=== PATIENT | female | born 1965 | race Caucasian/White ===

== ENCOUNTER 2016-08-29 12:45 | Outpatient (CLI) | payer BC | END 2016-08-29 12:46 | disposition home or self-care (01) | DX: R94.4 Abnormal results of kidney function studies (principal) ==

== ENCOUNTER 2016-09-04 14:03 | Outpatient (CLI) | payer BC | END 2016-09-04 14:04 | disposition home or self-care (01) | DX: Z12.31 Encounter for screening mammogram for malignant neoplasm of breast (principal) ==

== ENCOUNTER 2016-10-03 14:38 | Outpatient (CLI) | payer BC | END 2016-10-03 14:39 | disposition home or self-care (01) | DX: R94.4 Abnormal results of kidney function studies (principal) ==

== ENCOUNTER 2016-10-03 14:51 | Outpatient (CLI) | payer BC | END 2016-10-03 14:52 | disposition home or self-care (01) | DX: R94.4 Abnormal results of kidney function studies (principal) ==

== ENCOUNTER 2016-10-28 07:27 | Day surgery (SDC) | payer BC ==
[2016-10-28] MEDS ORDERED: LACTATED RINGERS 1,000 ML IV ONE ×2 (08:04)
[2016-10-28] MEDS ORDERED: LIDOCAINE 1% 50 ML MDV ONE (08:13)
[2016-10-28] MEDS ORDERED: MIDAZOLAM 2 MG/2 ML VIAL IVP ONE (10:20)
[2016-10-28] MEDS ORDERED: fentaNYL 250 MCG/5 ML VIAL IVP ONE (10:20)
== END 2016-10-28 07:28 | disposition home or self-care (01) ==
PROC: 0DJD8ZZ Inspection of Lower Intestinal Tract, Via Natural or Artificial Opening Endoscopic (ICD-10-PCS; principal; 2016-10-28 09:00)
DX: Z12.11 Encounter for screening for malignant neoplasm of colon (principal); K64.8 Other hemorrhoids; F41.9 Anxiety disorder, unspecified; Z90.49 Acquired absence of other specified parts of digestive tract; Z90.710 Acquired absence of both cervix and uterus; Z90.79 Acquired absence of other genital organ(s); Z90.722 Acquired absence of ovaries, bilateral; Z80.0 Family history of malignant neoplasm of digestive organs; Z80.9 Family history of malignant neoplasm, unspecified
CPT/HCPCS: 45378; J3010; J7120

== ENCOUNTER 2018-07-03 08:31 | Outpatient (CLI) | payer MEDICAID ==
[2018-07-03 10:22] LABS: BASOPHILS % (AUTO) 0.7 %; EOSINOPHILS # (AUTO) 0.4 10^3/uL (0.0-0.7); EOSINOPHILS % (AUTO) 5.9 %; HGB - HEMOGLOBIN 14.9 g/dL (12.0-16.0); LYMPHOCYTES # (AUTO) 2.2 10^3/uL (1.5-3.5); LYMPHOCYTES % (AUTO) 36.4 %; MEAN CORPUSCULAR HEMOGLOBIN 30.9 pg (27.0-31.0); MEAN CORPUSCULAR HGB CONC 34.1 g/dL (32.0-36.0); MEAN CORPUSCULAR VOLUME 90.4 fL (81.0-99.0); MEAN PLATELET VOLUME 8.8 fL (7.9-10.8); MONOCYTES # (AUTO) 0.4 10^3/uL (0.0-1.0); MONOCYTES % (AUTO) 6.6 %; NEUTROPHILS % (AUTO) 50.4 %; PLT - PLATELET COUNT 243 10^3/uL (130-450); RED BLOOD COUNT 4.82 10^6/uL (4.20-5.40); RED CELL DISTRIBUTION WIDTH 13.3 % (12.0-15.0)
[2018-07-03 10:33] LABS: ALBUMIN 4.1 g/dL (3.2-5.5); ALBUMIN/GLOBULIN RATIO 1.4 (1.0-2.2); ALKALINE PHOSPHATASE 71 IU/L (42-121); ALT ALANINE AMINOTRANSFERASE 33 IU/L (10-60); AST ASPARTATE AMINOTRANSFERASE 27 IU/L (10-42); BILIRUBIN,TOTAL 0.7 mg/dL (0.2-1.0); BUN - BLOOD UREA NITROGEN 24 mg/dL (6-20); CALCIUM 9.2 mg/dL (8.5-10.3); CARBON DIOXIDE - CO2 27 mmol/L (21-32); CHLORIDE 101 mmol/L (101-111); CHOL/HDL RATIO 3.3 (<4.4); CHOLESTEROL 225 mg/dL; CREATININE 0.8 mg/dL (0.4-1.0); GFR - MDRD 75 (>89); GLUCOSE 88 mg/dL (70-100); HDL CHOLESTEROL 68 mg/dL; LDL CHOLESTEROL,CALCULATED 144 mg/dL; LDL/HDL RATIO 2.1 (<4.4); SODIUM 136 mmol/L (135-145); TOTAL PROTEIN 7.1 g/dL (6.7-8.2); VLDL CHOLESTEROL 13 mg/dL
== END 2018-07-03 08:32 | disposition home or self-care (01) ==
LOC: LAB.F 08:31
PROVIDERS: ATTEND Nurse Practitioner Family
DX: F41.8 Other specified anxiety disorders (principal); Z13.6 Encounter for screening for cardiovascular disorders
CPT/HCPCS: 36415; 80053; 80061; 83721; 84443; 85025

== ENCOUNTER 2019-07-09 11:48 | Outpatient (CLI) | payer BC, MEDICAID ==
[2019-07-09 17:16] LABS: BASOPHILS # (AUTO) 0.1 10^3/uL (0.0-0.1); BASOPHILS % (AUTO) 0.7 %; EOSINOPHILS # (AUTO) 0.3 10^3/uL (0.0-0.7); EOSINOPHILS % (AUTO) 3.5 %; HGB - HEMOGLOBIN 14.1 g/dL (12.0-16.0); LYMPHOCYTES # (AUTO) 1.5 10^3/uL (1.5-3.5); LYMPHOCYTES % (AUTO) 19.4 %; MEAN CORPUSCULAR HEMOGLOBIN 29.7 pg (27.0-31.0); MEAN CORPUSCULAR HGB CONC 31.9 g/dL (32.0-36.0); MEAN CORPUSCULAR VOLUME 93.1 fL (81.0-99.0); MONOCYTES # (AUTO) 0.4 10^3/uL (0.0-1.0); MONOCYTES % (AUTO) 5.1 %; NEUTROPHILS # (AUTO) 5.5 10^3/uL (1.5-6.6); PLT - PLATELET COUNT 282 10^3/uL (130-450); RED BLOOD COUNT 4.75 10^6/uL (4.20-5.40); RED CELL DISTRIBUTION WIDTH 14.1 % (12.0-15.0); WHITE BLOOD COUNT 7.7 x10^3/uL (4.8-10.8)
[2019-07-09 17:54] LABS: RHEUMATOID FACTOR NEGATIVE (Negative)
[2019-07-13 16:14] LABS: ANA SCREEN NEGATIVE (NEGATIVE)
== END 2019-07-09 11:49 | disposition home or self-care (01) ==
LOC: LAB.S 11:48
PROVIDERS: ATTEND Family Medicine
DX: R53.83 Other fatigue (principal); M79.10 Myalgia, unspecified site
CPT/HCPCS: 36415; 84443; 85025; 85651; 86038; 86140; 86430

== ENCOUNTER 2020-04-03 19:57 | Outpatient (CLI) | payer MEDICAID | END 2020-04-03 19:58 | disposition critical access hospital (66) | LOC: EMS 19:57 | PROVIDERS: ATTEND Surgery | DX: M54.5 Low back pain (principal) | CPT/HCPCS: A0425; A0429; A0999 ==

== ENCOUNTER 2020-07-12 08:00 | Outpatient (CLI) | payer MEDICAID ==
[2020-07-12 21:01] LABS: BILIRUBIN,URINE NEGATIVE (NEGATIVE); GLUCOSE, URINE (UA) NEGATIVE (NEGATIVE); KETONES,URINE (UA) NEGATIVE (NEGATIVE); LEUKOCYTE ESTERASE, URINE SMALL (NEGATIVE); NITRITE,URINE NEGATIVE (NEGATIVE); OCCULT BLOOD,URINE MODERATE (NEGATIVE); PH,URINE 6.5 PH (5.0-7.5); PROTEIN,URINE NEGATIVE (NEGATIVE); UROBILINOGEN,URINE 0.2 (NORMAL) E.U./dL (NORMAL)
[2020-07-12 21:18] LABS: CLARITY,URINE HAZY (CLEAR)
[2020-07-12 21:19] LABS: BACTERIA,URINE Moderate /HPF (None Seen); SQUAMOUS EPITHELIAL CELL,UR RARE Squamous (<= Few)
== END 2020-07-12 23:59 | disposition home or self-care (01) ==
LOC: LAB.R 08:00
PROVIDERS: ATTEND Emergency Medicine
DX: R30.0 Dysuria (principal); R39.15 Urgency of urination
CPT/HCPCS: 81001; 87086

== ENCOUNTER 2020-10-25 07:00 | Outpatient (CLI) | payer MEDICAID ==
--- NOTE | 2020-10-25 16:41 | XRAY Report ---
PROCEDURE: Ribs w/PA Chest LT INDICATIONS: LEFT SIDED RIB PAIN TECHNIQUE: 3 views of the left ribs were acquired, along with a single view chest. COMPARISON: None. FINDINGS: Surgical changes and devices: None. Anterior left seventh rib fracture seen, minimally displaced. Lungs and pleura: No pleural effusions or pneumothorax. Lungs appear clear. Mediastinum: Mediastinal contours appear normal. Heart size is normal. IMPRESSION: Anterior left seventh rib fracture. Reviewed by: Paul Montiel MD on 10/25/2020 4:39 PM PDT Approved by: Paul Montiel MD on 10/25/2020 4:39 PM PDT Station ID: [id number]
== END 2020-10-25 23:59 | disposition home or self-care (01) ==
LOC: DI.S 07:00
PROVIDERS: ATTEND Physician Assistant
DX: S22.32XA Fracture of one rib, left side, initial encounter for closed fracture (principal)

== ENCOUNTER 2021-02-20 13:50 | Outpatient (CLI) | payer MEDICAID ==
--- NOTE | 2021-02-21 08:03 | Mammography Report ---
BILATERAL DIGITAL SCREENING MAMMOGRAM 3D/2D: 02/20/2021 CLINICAL: Routine screening. Comparison is made to exams dated: 09/04/2016 mammogram, 11/01/2013 mammogram, 11/16/2008 mammogram, and 04/13/2007 mammogram - [facility]. There are scattered fibroglandular elements in both breasts. There is a benign calcification in the left breast. There also are benign calcifications in the righ t breast. Additionally, there are benign post operative findings in both breasts. No significant masses, calcifications, or other findings are seen in either breast. There has been no significant interval change. IMPRESSION: BENIGN There is no mammographic evidence of malignancy. A 1 year screening mammogram is recommended. This exam was interpreted at Station ID: [id number]. NOTE: For mammograms, a report in lay terms will be sent to the patient. Approximately 15% of breast malignancies will not be visualized mammographically. In the management of a palpable breast mass, a negative mammogram must not discourage biopsy of a clinically suspicious lesion. Electronically Signed By: Abel Monique M.D. [facility] [place]:02/20/2021 15:35:41 ACR BI-RADS Category 2: Benign Finding(s) 3342F PARENCHYMAL PATTERN: (A) - The breast(s) demonstrate(s) scattered fibroglandular densities. BI-RADS CATEGORY: (2) - 2 RECOMMENDATION: (ANNUAL) - Recommend routine annual screening mammography. [id number] 1 year screening LATERALITY: (B)
== END 2021-02-20 13:51 | disposition home or self-care (01) ==
LOC: DI 13:50
PROVIDERS: ATTEND Registered Nurse
DX: Z12.31 Encounter for screening mammogram for malignant neoplasm of breast (principal)

== ENCOUNTER 2021-02-20 13:52 | Outpatient (CLI) | payer MEDICAID ==
--- NOTE | 2021-02-20 17:04 | DEXA Report ---
PROCEDURE: Dexa Spine and/or Hip INDICATIONS: POST MENOPAUSAL TECHNIQUE: Dual energy x-ray absorptiometry (DXA) was performed on a [employer] System. Regions measur ed are the AP Spine, femoral neck, and if needed forearm. COMPARISON: None. FINDINGS: Lumbar Spine: Bone Mineral Density 0.825 g/cm/cm,T score -3.0, osteoporosis Left Hip: Bone Mineral Density 0.913 g/cm/cm,T score -0.7, normal Left Femoral Neck: Bone Mineral Density 0.895 g/cm/cm, T score -1.0, normal (T score greater or equal to -1.0: NORMAL) (T score from -1.1 to -2.4: OSTEOPENIA) (T score less than or equal to -2.5 to: OSTEOPOROSIS) Impression: Osteoporosis. Patients with diagnosis of osteoporosis or osteopenia should have regular bone mineral density assess ment. For those eligible for Medicare, routine testing is allowed once every 2 years. Testing frequ ency can be increased for patients who have rapidly progressing disease or for those who are receivin g medical therapy to restore bone mass. Reviewed by: Ranjana Murillo MD, PhD on 02/20/2021 5:03 PM PDT Approved by: Ranjana Murillo MD, PhD on 02/20/2021 5:03 PM PDT Station ID: [id number]
== END 2021-02-20 13:53 | disposition home or self-care (01) ==
LOC: DI 13:52
PROVIDERS: ATTEND Registered Nurse
DX: Z78.0 Asymptomatic menopausal state (principal); M81.0 Age-related osteoporosis without current pathological fracture

== ENCOUNTER 2021-07-04 08:00 | Outpatient (CLI) | payer MEDICAID | END 2021-07-04 23:59 | LOC: LAB.S 08:00 | PROVIDERS: ATTEND Physician Assistant Medical | DX: R50.9 Fever, unspecified (principal); J34.89 Other specified disorders of nose and nasal sinuses; J02.9 Acute pharyngitis, unspecified; Z20.822 Contact with and (suspected) exposure to COVID-19 | CPT/HCPCS: 87070 ==

== ENCOUNTER 2023-03-13 09:02 | Outpatient (CLI) | payer MEDICAID ==
[2023-03-13 14:21] LABS: BASOPHILS # (AUTO) 0.1 10^3/uL (0.0-0.1); BASOPHILS % (AUTO) 0.8 %; EOSINOPHILS # (AUTO) 0.2 10^3/uL (0.0-0.7); EOSINOPHILS % (AUTO) 3.3 %; HCT - HEMATOCRIT 44.6 % (37.0-47.0); HGB - HEMOGLOBIN 14.1 g/dL (12.0-16.0); LYMPHOCYTES # (AUTO) 1.7 10^3/uL (1.5-3.5); LYMPHOCYTES % (AUTO) 26.2 %; MEAN CORPUSCULAR HEMOGLOBIN 28.5 pg (27.0-31.0); MEAN CORPUSCULAR HGB CONC 31.6 g/dL (32.0-36.0); MEAN CORPUSCULAR VOLUME 90.1 fL (81.0-99.0); MEAN PLATELET VOLUME 10.8 fL (7.9-10.8); MONOCYTES # (AUTO) 0.4 10^3/uL (0.0-1.0); MONOCYTES % (AUTO) 6.4 %; NEUTROPHILS # (AUTO) 4.1 10^3/uL (1.5-6.6); NEUTROPHILS % (AUTO) 63.1 %; PLT - PLATELET COUNT 319 10^3/uL (130-450); RED BLOOD COUNT 4.95 10^6/uL (4.20-5.40); RED CELL DISTRIBUTION WIDTH 15.9 % (12.0-15.0); WHITE BLOOD COUNT 6.5 x10^3/uL (4.8-10.8)
[2023-03-13 14:54] LABS: ALBUMIN 4.1 g/dL (3.2-5.5); ALBUMIN/GLOBULIN RATIO 1.4 (1.0-2.2); ALKALINE PHOSPHATASE 84 IU/L (42-121); ALT ALANINE AMINOTRANSFERASE 17 IU/L (10-60); AST ASPARTATE AMINOTRANSFERASE 24 IU/L (10-42); BILIRUBIN,TOTAL 0.5 mg/dL (0.2-1.0); BUN - BLOOD UREA NITROGEN 19 mg/dL (6-20); CALCIUM 9.6 mg/dL (8.5-10.3); CARBON DIOXIDE - CO2 28 mmol/L (21-32); CHLORIDE 104 mmol/L (101-111); CHOLESTEROL 199 mg/dL; CREATININE 0.8 mg/dL (0.6-1.3); GFR - MDRD 74 (>89); GLUCOSE 93 mg/dL (74-104); HDL CHOLESTEROL 50 mg/dL; LDL CHOLESTEROL,CALCULATED 136 mg/dL; LDL/HDL RATIO 2.7 (<4.4); POTASSIUM 3.9 mmol/L (3.5-4.5); SODIUM 137 mmol/L (135-145); TRIGLYCERIDES 63 mg/dL (48-352); VLDL CHOLESTEROL 13 mg/dL
[2023-03-13 15:01] LABS: THYROID STIMULATING HORMONE 1.47 uIU/mL (0.34-5.60)
[2023-03-13 15:07] LABS: FERRITIN 20.7 ng/mL (11.0-306.8)
== END 2023-03-13 09:03 | disposition home or self-care (01) ==
LOC: LAB.S 09:02
PROVIDERS: ATTEND Registered Nurse
DX: Z13.0 Encounter for screening for diseases of the blood and blood-forming organs and certain disorders involving the immune mechanism (principal); Z13.228 Encounter for screening for other metabolic disorders; Z13.220 Encounter for screening for lipoid disorders; Z13.29 Encounter for screening for other suspected endocrine disorder
CPT/HCPCS: 36415; 80053; 80061; 82728; 83721; 84443; 85025

== ENCOUNTER 2023-05-10 11:41 | Outpatient (CLI) | payer MEDICAID | END 2023-05-10 11:42 | disposition critical access hospital (66) | LOC: EMS 11:41 | DX: R53.1 Weakness (principal); R42 Dizziness and giddiness; F41.9 Anxiety disorder, unspecified; R06.4 Hyperventilation; R00.0 Tachycardia, unspecified | CPT/HCPCS: A0425; A0429; A0999 ==

== ENCOUNTER 2023-05-10 12:17 | Emergency (ER) | payer MEDICAID ==
[2023-05-10] MEDS ORDERED: SODIUM CHLORIDE 0.9% 1,000 ML IV STA (12:24)
--- NOTE | 2023-05-10 12:25 | ED Physician Documentation ---
History of Present Illness - Stated complaint Stated Complaint: WEAKNESS - History obtained from History obtained from: Patient - Additonal information Additional information: She has a history of fibromyalgia and depression but is generally medically healthy. Starting 6 days ago she developed chills, fast heart rate and generalized weakness. She feels like her heart is racing at rest and gets worse with even minor exertion. She denies shortness of breath or chest pain with it. She is generally weak though and went to the walk-in clinic where she was actually too weak to get up onto the exam table. She was noted to be quite tach ycardic in the 1 30-1 50 range, and sinus tachycardia. She denies recent travel. She had severe chills but no measured fevers. No cough. No urinary complaints. Denies pedal edema or calf pain. No chest pain. No recent medication changes. She has not been eating well because she says her sense of smell is off. She has been taking Tylenol for the chills. She is not taking any aspirin/salicylates. PD PAST MEDICAL HISTORY - Past Medical History Cardiovascular: None Respiratory: None Endocrine/Autoimmune: None GI: None : None HEENT: None Psych: Depression, Anxiety Musculoskeletal: Fibromyalgia Derm: None - Past Surgical History Past Surgical History: Yes General: Cholecystectomy, Other /AD OPERATIONS SPECIALIST: Hysterectomy - Present Medications Home Medications: Ambulatory Orders Medication Instructions Recorded Confirmed Calcium Carbonate/Vitamin D3 1 each PO DAILY PRN 10/28/16 05/10/23 [Calcium 500-Vit D3 200 Tablet] Magnesium Oxide [Magnesium] 500 mg PO DAILY 10/28/16 05/10/23 Multivitamin [Multiple Vitamins] 1 each PO DAILY 10/28/16 05/10/23 [place]-3/Dha/Epa/Fish Oil [Fish Oil 1 each PO DAILY 10/28/16 05/10/23 1,000 mg Softgel] hydrOXYzine pamoate [Hydroxyzine 50 mg PO OAW PRN 10/28/16 05/10/23 Pamoate] LORazepam [Ativan] 1 mg PO TID PRN #12 tablet 05/10/23 Milnacipran HCl [Savella] 50 mg PO BID 05/10/23 05/10/23 QUEtiapine [SEROquel] 50 mg PO QPM 05/10/23 05/10/23 - Allergies Allergies/Adverse Reactions: Allergies Allergy/AdvReac Type Severity Reaction Status Date / Time Sulfa (Sulfonamide Allergy Rash Verified 05/10/23 12:24 Antibiotics) - Social History Does the pt smoke?: No Smoking Status: Never smoker Does the pt drink ETOH?: Yes Does the pt have substance abuse?: Yes - Immunizations Immunizations are current?: Yes - POLST Patient has POLST: No PD ED PE NORMAL - Vitals Vital signs reviewed: Yes - General General: Alert and oriented X 3, Other (She appears uncomfortable and anxious preferring to keep her eyes closed and has significant resting tachycardia) - HEENT HEENT: PERRL (Mildly dilated pupils but not overtly so and reactive), Moist mucous membranes - Neck Neck: Supple, no meningeal sign, No bony TTP - Cardiac Cardiac: Other (Tachycardic but regular without murmur) - Respiratory Respiratory: No respiratory distress, Clear bilaterally - Abdomen Abdomen: Non tender - Back Back: No CVA TTP, No spinal TTP - Derm Derm: Normal color, Warm and dry - Extremities Extremities: No edema, No calf tenderness / cord - Neuro Neuro: Alert and oriented X 3, Normal speech Results - Vitals Vitals: Vital Signs - 24 hr 05/10/23 05/10/23 05/10/23 12:24 12:30 13:30 Temperature 36.8 C Heart Rate 110 H 112 H 102 H Respiratory 24 19 Rate Blood Pressure 139/109 H 145/115 H 147/117 H O2 Saturation 99 100 05/10/23 05/10/23 14:30 15:24 Temperature Heart Rate 117 H 100 Respiratory 32 H 18 Rate Blood Pressure 145/93 H 145/83 H O2 Saturation 100 100 Oxygen O2 Source Room air - EKG (time done) 1236 EKG releavant findings:: EKG personally interpreted by author of this note. Relevant findings are: Rate: Rate (enter#) (129) Rhythm: Sinus tachycardia, LAE [place]: Normal Intervals: Normal OR QRS: Normal Ischemia: Non specific changes. No: ST elevation c/w ischemia - Labs Labs: Laboratory Tests 05/10/23 05/10/23 05/10/23 12:35 12:35 12:35 WBC 8.8 RBC 5.35 Hgb 15.6 Hct 46.9 MCV 87.7 MCH 29.2 MCHC 33.3 RDW 14.0 Plt Count 387 MPV 9.5 Neut # (Auto) 7.0 H Lymph # (Auto) 1.3 L Jackson # (Auto) 0.5 Eos # (Auto) 0.0 Baso # (Auto) 0.0 Absolute Nucleated RBC 0.00 Nucleated RBC % 0.0 D-Dimer 201.6 VBG pH VBG pCO2 VBG pO2 VBG HCO3 VBG Total CO2 VBG O2 Saturation VBG Base Excess Sodium 136 Potassium 4.4 Chloride 102 Carbon Dioxide 19 L Anion Gap 15.0 H BUN 26 H Creatinine 0.9 Estimated GFR (MDRD) 64 L Glucose 109 H Lactic Acid Calcium 10.2 Phosphorus Magnesium 1.6 L Total Bilirubin 0.7 AST 21 ALT 21 Alkaline Phosphatase 82 Troponin I High Sens Total Protein 7.9 Albumin 4.5 Globulin 3.4 Albumin/Globulin Ratio 1.3 TSH Urine Color Urine Clarity Urine pH Ur Specific [place] Urine Protein Urine Glucose (UA) Urine Ketones Urine Occult Blood Urine Nitrite Urine Bilirubin Urine Urobilinogen Ur Leukocyte Esterase Ur Microscopic Review Urine Culture Comments Nasal Adenovirus (PCR) Nasal B. parapertussis DNA (PCR) Nasal Coronavir 229E PCR Nasal Coronavir HKU1 PCR Nasal Coronavir NL63 PCR Nasal Coronavir OC43 PCR Nasal Enterovir/Rhinovir PCR Nasal Influenza B PCR Nasal Influenza A PCR Nasal Parainfluen 1 PCR Nasal Parainfluen 2 PCR Nasal Parainfluen 3 PCR Nasal Parainfluen 4 PCR Nasal RSV (PCR) Nasal B.pertussis DNA PCR Nasal C.pneumoniae (PCR) Epifanio Human Metapneumo PCR Nasal M.pneumoniae (PCR) Nasal SARS-CoV-2 (PCR) Salicylates Urine Opiates Screen Ur Oxycodone Screen Urine Methadone Screen Ur Propoxyphene Screen Ur Barbiturates Screen Ur Tricyclics Screen Ur Phencyclidine Scrn Ur Amphetamine Screen U Methamphetamines Scrn U Benzodiazepines Scrn Urine Cocaine Screen U Cannabinoids Screen 05/10/23 05/10/23 05/10/23 12:35 12:35 12:35 WBC RBC Hgb Hct MCV MCH MCHC RDW Plt Count MPV Neut # (Auto) Lymph # (Auto) Jackson # (Auto) Eos # (Auto) Baso # (Auto) Absolute Nucleated RBC Nucleated RBC % D-Dimer VBG pH 7.618 H* VBG pCO2 19.2 L VBG pO2 15.2 L VBG HCO3 19.2 L VBG Total CO2 19.8 L VBG O2 Saturation 32.5 L VBG Base Excess 0.9 Sodium Potassium Chloride Carbon Dioxide Anion Gap BUN Creatinine Estimated GFR (MDRD) Glucose Lactic Acid 4.2 H* Calcium Phosphorus Magnesium Total Bilirubin AST ALT Alkaline Phosphatase Troponin I High Sens 2.7 Total Protein Albumin Globulin Albumin/Globulin Ratio TSH Urine Color Urine Clarity Urine pH Ur Specific [place] Urine Protein Urine Glucose (UA) Urine Ketones Urine Occult Blood Urine Nitrite Urine Bilirubin Urine Urobilinogen Ur Leukocyte Esterase Ur Microscopic Review Urine Culture Comments Nasal Adenovirus (PCR) Nasal B. parapertussis DNA (PCR) Nasal Coronavir 229E PCR Nasal Coronavir HKU1 PCR Nasal Coronavir NL63 PCR Nasal Coronavir OC43 PCR Nasal Enterovir/Rhinovir PCR Nasal Influenza B PCR Nasal Influenza A PCR Nasal Parainfluen 1 PCR Nasal Parainfluen 2 PCR Nasal Parainfluen 3 PCR Nasal Parainfluen 4 PCR Nasal RSV (PCR) Nasal B.pertussis DNA PCR Nasal C.pneumoniae (PCR) Epifanio Human Metapneumo PCR Nasal M.pneumoniae (PCR) Nasal SARS-CoV-2 (PCR) Salicylates Urine Opiates Screen Ur Oxycodone Screen Urine Methadone Screen Ur Propoxyphene Screen Ur Barbiturates Screen Ur Tricyclics Screen Ur Phencyclidine Scrn Ur Amphetamine Screen U Methamphetamines Scrn U Benzodiazepines Scrn Urine Cocaine Screen U Cannabinoids Screen 05/10/23 05/10/23 05/10/23 12:35 12:35 12:40 WBC RBC Hgb Hct MCV MCH MCHC RDW Plt Count MPV Neut # (Auto) Lymph # (Auto) Jackson # (Auto) Eos # (Auto) Baso # (Auto) Absolute Nucleated RBC Nucleated RBC % D-Dimer VBG pH VBG pCO2 VBG pO2 VBG HCO3 VBG Total CO2 VBG O2 Saturation VBG Base Excess Sodium Potassium Chloride Carbon Dioxide Anion Gap BUN Creatinine Estimated GFR (MDRD) Glucose Lactic Acid Calcium Phosphorus < 1.0 L* Magnesium Total Bilirubin AST ALT Alkaline Phosphatase Troponin I High Sens Total Protein Albumin Globulin Albumin/Globulin Ratio TSH 1.42 Urine Color Urine Clarity Urine pH Ur Specific [place] Urine Protein Urine Glucose (UA) Urine Ketones Urine Occult Blood Urine Nitrite Urine Bilirubin Urine Urobilinogen Ur Leukocyte Esterase Ur Microscopic Review Urine Culture Comments Nasal Adenovirus (PCR) NOT DETECTED Nasal B. parapertussis DNA (PCR) NOT DETECTED Nasal Coronavir 229E PCR NOT DETECTED Nasal Coronavir HKU1 PCR NOT DETECTED Nasal Coronavir NL63 PCR NOT DETECTED Nasal Coronavir OC43 PCR NOT DETECTED Nasal Enterovir/Rhinovir PCR NOT DETECTED Nasal Influenza B PCR NOT DETECTED Nasal Influenza A PCR NOT DETECTED Nasal Parainfluen 1 PCR NOT DETECTED Nasal Parainfluen 2 PCR NOT DETECTED Nasal Parainfluen 3 PCR NOT DETECTED Nasal Parainfluen 4 PCR NOT DETECTED Nasal RSV (PCR) NOT DETECTED Nasal B.pertussis DNA PCR NOT DETECTED Nasal C.pneumoniae (PCR) NOT DETECTED Epifanio Human Metapneumo PCR NOT DETECTED Nasal M.pneumoniae (PCR) NOT DETECTED Nasal SARS-CoV-2 (PCR) NOT DETECTED Salicylates < 1.5 Urine Opiates Screen Ur Oxycodone Screen Urine Methadone Screen Ur Propoxyphene Screen Ur Barbiturates Screen Ur Tricyclics Screen Ur Phencyclidine Scrn Ur Amphetamine Screen U Methamphetamines Scrn U Benzodiazepines Scrn Urine Cocaine Screen U Cannabinoids Screen 05/10/23 05/10/23 05/10/23 13:10 14:58 14:58 WBC RBC Hgb Hct MCV MCH MCHC RDW Plt Count MPV Neut # (Auto) Lymph # (Auto) [place] # (Auto) Eos # (Auto) Baso # (Auto) Absolute Nucleated RBC Nucleated RBC % D-Dimer VBG pH 7.384 VBG pCO2 36.9 L VBG pO2 23.7 L VBG HCO3 21.5 L VBG Total CO2 22.7 L VBG O2 Saturation 41.1 L VBG Base Excess -2.9 L Sodium Potassium Chloride Carbon Dioxide Anion Gap BUN Creatinine Estimated GFR (MDRD) Glucose Lactic Acid 2.4 H Calcium Phosphorus Magnesium Total Bilirubin AST ALT Alkaline Phosphatase Troponin I High Sens Total Protein Albumin Globulin Albumin/Globulin Ratio TSH Urine Color YELLOW Urine Clarity CLEAR Urine pH 7.5 Ur Specific [place] <=1.005 Urine Protein NEGATIVE Urine Glucose (UA) NEGATIVE Urine Ketones NEGATIVE Urine Occult Blood NEGATIVE Urine Nitrite NEGATIVE Urine Bilirubin NEGATIVE Urine Urobilinogen 0.2 (NORMAL) Ur Leukocyte Esterase NEGATIVE Ur Microscopic Review NOT INDICATED Urine Culture Comments NOT INDICATED Nasal Adenovirus (PCR) Nasal B. parapertussis DNA (PCR) Nasal Coronavir 229E PCR Nasal Coronavir HKU1 PCR Nasal Coronavir NL63 PCR Nasal Coronavir OC43 PCR Nasal Enterovir/Rhinovir PCR Nasal Influenza B PCR Nasal Influenza A PCR Nasal Parainfluen 1 PCR Nasal Parainfluen 2 PCR Nasal Parainfluen 3 PCR Nasal Parainfluen 4 PCR Nasal RSV (PCR) Nasal B.pertussis DNA PCR Nasal C.pneumoniae (PCR) Epifanio Human Metapneumo PCR Nasal M.pneumoniae (PCR) Nasal SARS-CoV-2 (PCR) Salicylates Urine Opiates Screen NEGATIVE Ur Oxycodone Screen NEGATIVE Urine Methadone Screen NEGATIVE Ur Propoxyphene Screen NEGATIVE Ur Barbiturates Screen NEGATIVE Ur Tricyclics Screen NEGATIVE Ur Phencyclidine Scrn NEGATIVE Ur Amphetamine Screen NEGATIVE U Methamphetamines Scrn NEGATIVE U Benzodiazepines Scrn NEGATIVE Urine Cocaine Screen NEGATIVE U Cannabinoids Screen POSITIVE H - Rads (name of study) Single view chest x-ray is unremarkable Relevant Findings:: Final report received, EMP independent interpretation of test PD Medical Decision Making - ED course ED course: 58-year-old woman with parosmia, sinus tachycardia, generalized weakness not associated with shortness of breath or chest pain. She has mildly dilated pupils but really nothing else on exam other than the tachycardia. Work-up in the emergency department demonstrates a fairly normal CBC with mild lymphopenia. D-dimer is negative ruling out thromboembolic disease. Venous blood gas notable for significant respiratory alkalosis and chemistries are notable for mild hypomagnesemia, prerenal azotemia and modest lactic acidosis. TSH and troponin were negative. Given the respiratory alkalosis she was queried about anxiety and she does not feel particularly anxious. She was queried about salicylate use and she has not been using aspirin or salicylates. She denies drugs of abuse. None of her medications are new. I suppose Savella could cause tachycardia but she has been stable for several months on her current dose. She is not hyperreflexic to the extent that I would be concerned for serotonin syndrome. Her phosphorus level was quite low, my suspicion is this is related to the respiratory alkalosis and probably her whole body phosphorus is normal or near normal. I will give her a dose of Neutra-Phos orally. I am also giving her a second liter of crystalloid and IV magnesium for mild hypomagnesemia. Reassessed the patient at around 2:10 PM she was much more panicky now stating she just did not feel well. Nothing specific. She is agreeable to something for anxiety and IV Ativan and droperidol were ordered anxiety could certainly explain most of her more significant lab abnormalities due to hyperventilation. Given the abnormality on the venous gas it was rechecked after the administration of the anxiolytics. Subsequently her venous gas had normalized and she was feeling much better and her heart rate was right around 100. Departure - Departure Disposition: 01 Home, Self Care Clinical Impression: Hyperventilation, Tachycardia Condition: Good Record reviewed to determine appropriate education?: Yes Instructions: ED Hyperventilation Syndrome Prescriptions: LORazepam [Ativan] 1 mg PO TID PRN #12 tablet PRN Reason: Anxiety Comments: I sent your prescription electronically to the [facility] in [place]. As discussed, I think the high heart rate and your symptoms are multifactorial. Some of it might be due to the Savella, but more recently I think you probably developed a viral syndrome which caused the abnormal sense of smell and then drove you into some level anxiety causing hyperventilation. Call your doctor to arrange a follow-up appointment, make the next available appointment. In the interim, return anytime if worse or if new symptoms develop. Forms: PCP List Discharge Date/Time: 05/10/23 15:25
[2023-05-10 12:40] LABS: BASOPHILS % (AUTO) 0.5 %; EOSINOPHILS % (AUTO) 0.5 %; HCT - HEMATOCRIT 46.9 % (37.0-47.0); HGB - HEMOGLOBIN 15.6 g/dL (12.0-16.0); LYMPHOCYTES # (AUTO) 1.3 10^3/uL (1.5-3.5); LYMPHOCYTES % (AUTO) 14.5 %; MEAN CORPUSCULAR HEMOGLOBIN 29.2 pg (27.0-31.0); MEAN CORPUSCULAR HGB CONC 33.3 g/dL (32.0-36.0); MEAN CORPUSCULAR VOLUME 87.7 fL (81.0-99.0); MEAN PLATELET VOLUME 9.5 fL (7.9-10.8); MONOCYTES # (AUTO) 0.5 10^3/uL (0.0-1.0); MONOCYTES % (AUTO) 5.3 %; NEUTROPHILS % (AUTO) 78.9 %; PLT - PLATELET COUNT 387 10^3/uL (130-450); RED BLOOD COUNT 5.35 10^6/uL (4.20-5.40); WHITE BLOOD COUNT 8.8 x10^3/uL (4.8-10.8)
--- NOTE | 2023-05-10 12:44 | XRAY Report ---
PROCEDURE: Chest 1 View X-Ray INDICATIONS: chills, tachycardia TECHNIQUE: One view of the chest was acquired. COMPARISON: None. FINDINGS: Surgical changes and devices: None. Lungs and pleura: No pleural effusions or pneumothorax. Lungs are clear. Mediastinum: Mediastinal contours appear normal. Heart size is normal. Bones and chest wall: No suspicious bony lesions. Overlying soft tissues appear unremarkable. IMPRESSION: No acute process. Reviewed by: Cem Wilson MD on 05/10/2023 12:43 PM PDT Approved by: Cem Wilson MD on 05/10/2023 12:43 PM PDT Station ID: [id number]
[2023-05-10 12:49] LABS: VBG BASE EXCESS 0.9 mmol/L (-2 - +2); VBG HCO3 19.2 mmol/L (23-28); VBG OXYGEN SATURATION 32.5 % (60-80); VBG PCO2 19.2 mmHg (41-51); VBG PO2 15.2 mmHg (25-47); VBG TOTAL CO2 19.8 mmol/L (24-29)
[2023-05-10 12:51] LABS: VBG PH 7.618 (7.31-7.41)
[2023-05-10 13:07] LABS: ALBUMIN 4.5 g/dL (3.2-5.5); ALBUMIN/GLOBULIN RATIO 1.3 (1.0-2.2); BILIRUBIN,TOTAL 0.7 mg/dL (0.2-1.0); CALCIUM 10.2 mg/dL (8.5-10.3); CREATININE 0.9 mg/dL (0.6-1.3); MAGNESIUM 1.6 mg/dL (1.7-2.3); POTASSIUM 4.4 mmol/L (3.5-4.5); TOTAL PROTEIN 7.9 g/dL (6.4-8.9)
[2023-05-10] MEDS ORDERED: LACTATED RINGERS 1,000 ML IV STA (13:11)
[2023-05-10] MEDS ORDERED: MAGNESIUM SULFATE 2 GRAM 2 GM/50 ML BAG IV ONE (13:11)
[2023-05-10 13:20] LABS: MUDS CUTOFF CONCENTRATIONS CUTOFF CONC BELOW:
[2023-05-10 13:23] LABS: BILIRUBIN,URINE NEGATIVE (NEGATIVE); GLUCOSE, URINE (UA) NEGATIVE (NEGATIVE); KETONES,URINE (UA) NEGATIVE (NEGATIVE); LEUKOCYTE ESTERASE, URINE NEGATIVE (NEGATIVE); NITRITE,URINE NEGATIVE (NEGATIVE); OCCULT BLOOD,URINE NEGATIVE (NEGATIVE); PH,URINE 7.5 PH (5.0-7.5); PROTEIN,URINE NEGATIVE (NEGATIVE); UROBILINOGEN,URINE 0.2 (NORMAL) E.U./dL (NORMAL)
[2023-05-10 13:24] LABS: CLARITY,URINE CLEAR (CLEAR)
[2023-05-10 13:26] LABS: SALICYLATE < 1.5 mg/dL
[2023-05-10 13:31] LABS: AMPHETAMINE SCREEN,URINE NEGATIVE (NEGATIVE); BARBITURATE SCREEN,UR NEGATIVE (NEGATIVE); BENZODIAZEPINES SCREEN, URINE NEGATIVE (NEGATIVE); COCAINE SCREEN URINE NEGATIVE (NEGATIVE); METHADONE SCREEN, URINE NEGATIVE (NEGATIVE); METHAMPHETAMINES SCREEN, URINE NEGATIVE (NEGATIVE); OPIATE SCREEN, URINE NEGATIVE (NEGATIVE); OXYCODONE SCREEN, URINE NEGATIVE (NEGATIVE); PROPOXYPHENE SCREEN, URINE NEGATIVE (NEGATIVE); THC CANNABINOID SCREEN, URINE POSITIVE (NEGATIVE); TRICYCLIC ANTIDEPRESSANT,URINE NEGATIVE (NEGATIVE)
[2023-05-10 13:40] LABS: PHOSPHORUS < 1.0 mg/dL (2.5-5.0)
[2023-05-10] MEDS ORDERED: NEUTRA-PHOS 250 MG TABLET PO STA (13:57)
[2023-05-10 14:07] LABS: CORONAVIRUS 229E-RESP PCR NOT DETECTED; CORONAVIRUS HKU1-RESP PCR NOT DETECTED; CORONAVIRUS NL63-RESP PCR NOT DETECTED; CORONAVIRUS OC43-RESP PCR NOT DETECTED; HUMAN METAPNEUMOVIRUS NOT DETECTED; INFLUENZA A- RESP PCR PANEL NOT DETECTED; RHINOVIRUS/ENTEROVIRUS NOT DETECTED; SARS-CoV-2 -RESP PCR PANEL NOT DETECTED
[2023-05-10 14:08] LABS: B. PARAPERTUSSIS- RESP PCR PAN NOT DETECTED; B. PERTUSSIS- RESP PCR PANEL NOT DETECTED; C. PNEUMONIAE- RESP PCR PANEL NOT DETECTED; INFLUENZA B - RESP PCR PANEL NOT DETECTED; M. PNEUMONIAE- RESP PCR PANEL NOT DETECTED; PARAINFLUENZA VIRUS 1 NOT DETECTED; PARAINFLUENZA VIRUS 2 NOT DETECTED; PARAINFLUENZA VIRUS 3 NOT DETECTED; PARAINFLUENZA VIRUS 4 NOT DETECTED; RSV- RESP PCR PANEL NOT DETECTED
[2023-05-10] MEDS ORDERED: LORazepam 2 MG/ML VIAL IVP STA (14:09)
[2023-05-10] MEDS ORDERED: DROPERIDOL 5 MG/2 ML VIAL IVP STA (14:15)
[2023-05-10 14:47] VITALS: O2SAT 100
[2023-05-10 15:08] LABS: VBG BASE EXCESS -2.9 mmol/L (-2 - +2); VBG HCO3 21.5 mmol/L (23-28); VBG OXYGEN SATURATION 41.1 % (60-80); VBG PCO2 36.9 mmHg (41-51); VBG PH 7.384 (7.31-7.41); VBG PO2 23.7 mmHg (25-47); VBG TOTAL CO2 22.7 mmol/L (24-29)
[2023-05-10 15:30] VITALS: BP 145/83
== END 2023-05-10 15:25 | disposition home or self-care (01) ==
LOC: EDUNIT# → EDBD → ED 12:17
DX: R06.4 Hyperventilation (principal); R00.0 Tachycardia, unspecified; Z20.822 Contact with and (suspected) exposure to COVID-19
CPT/HCPCS: 36415; 71045; 80053; 80306; 80329; 81003; 82803; 83605; 83735; 84100; 84443; 84484; 85025; 85379; 87040; 87633; 93005; 96361; 96365; 96375; 99284; A9270; J2060; J7120; 81001; 87086

== ENCOUNTER 2023-09-09 12:25 | Outpatient (CLI) | payer MEDICAID ==
[2023-09-09 14:54] LABS: ABSOLUTE RETICS # AUTO 0.063 10^6/uL (0.020-0.110); BASOPHILS # (AUTO) 0.1 10^3/uL (0.0-0.1); BASOPHILS % (AUTO) 0.6 %; EOSINOPHILS # (AUTO) 0.1 10^3/uL (0.0-0.7); EOSINOPHILS % (AUTO) 0.7 %; HCT - HEMATOCRIT 45.4 % (37.0-47.0); LYMPHOCYTES # (AUTO) 1.9 10^3/uL (1.5-3.5); LYMPHOCYTES % (AUTO) 22.1 %; MEAN CORPUSCULAR HEMOGLOBIN 29.9 pg (27.0-31.0); MEAN CORPUSCULAR VOLUME 90.4 fL (81.0-99.0); MONOCYTES # (AUTO) 0.5 10^3/uL (0.0-1.0); MONOCYTES % (AUTO) 5.1 %; NEUTROPHILS # (AUTO) 6.3 10^3/uL (1.5-6.6); NEUTROPHILS % (AUTO) 71.3 %; PLT - PLATELET COUNT 344 10^3/uL (130-450); RED BLOOD COUNT 5.02 10^6/uL (4.20-5.40); RED CELL DISTRIBUTION WIDTH 13.7 % (12.0-15.0); RETICULOCYTE COUNT % (AUTO) 1.25 % (0.5-2.3); WHITE BLOOD COUNT 8.8 x10^3/uL (4.8-10.8)
[2023-09-09 15:43] LABS: % IRON SATURATION 16 % (20-50); ALBUMIN 4.4 g/dL (3.2-5.5); ALBUMIN/GLOBULIN RATIO 1.5 (1.0-2.2); ALKALINE PHOSPHATASE 56 IU/L (42-121); ALT ALANINE AMINOTRANSFERASE 15 IU/L (10-60); AST ASPARTATE AMINOTRANSFERASE 17 IU/L (10-42); BILIRUBIN,TOTAL 0.4 mg/dL (0.2-1.0); BUN - BLOOD UREA NITROGEN 24 mg/dL (6-20); CALCIUM 9.9 mg/dL (8.5-10.3); CARBON DIOXIDE - CO2 26 mmol/L (21-32); CHLORIDE 103 mmol/L (101-111); CHOL/HDL RATIO 3.8 (<4.4); CHOLESTEROL 253 mg/dL; CREATININE 0.9 mg/dL (0.6-1.3); GFR - MDRD 64 (>89); GLUCOSE 105 mg/dL (74-104); HDL CHOLESTEROL 66 mg/dL; IRON 67 ug/dL (50-212); LDL CHOLESTEROL,CALCULATED 173 mg/dL; LDL/HDL RATIO 2.6 (<4.4); POTASSIUM 4.3 mmol/L (3.5-4.5); SODIUM 138 mmol/L (135-145); TOTAL IRON BINDING CAPACITY 431 ug/dL (250-450); TOTAL PROTEIN 7.4 g/dL (6.4-8.9); TRANSFERRIN 308 mg/dL (203-362); TRIGLYCERIDES 70 mg/dL (48-352); VLDL CHOLESTEROL 14 mg/dL
[2023-09-09 15:59] LABS: THYROID STIMULATING HORMONE 1.32 uIU/mL (0.34-5.60)
[2023-09-09 16:06] LABS: FERRITIN 24.9 ng/mL (11.0-306.8)
== END 2023-09-09 12:26 | disposition home or self-care (01) ==
LOC: LAB.S 12:25
PROVIDERS: ATTEND Registered Nurse
DX: Z13.228 Encounter for screening for other metabolic disorders (principal); Z13.220 Encounter for screening for lipoid disorders; Z13.29 Encounter for screening for other suspected endocrine disorder; Z86.2 Personal history of diseases of the blood and blood-forming organs and certain disorders involving the immune mechanism; Z13.0 Encounter for screening for diseases of the blood and blood-forming organs and certain disorders involving the immune mechanism
CPT/HCPCS: 36415; 80053; 80061; 82607; 82728; 82746; 83540; 83721; 84443; 84466; 85025; 85045

== ENCOUNTER 2023-10-14 13:54 | Outpatient (CLI) | payer MEDICAID ==
--- NOTE | 2023-10-15 09:07 | Mammography Report ---
BILATERAL DIGITAL SCREENING MAMMOGRAM 3D/2D WITH EXAGGERATED CC: 10/14/2023 CLINICAL: Routine screening. Comparison is made to exams dated: 02/20/2021 mammogram, 09/04/2016 mammogram, and 11/01/2013 mammogram - [facility]. Both breasts are almost entirely fatty (category a/<25% glandular tissue). There is a benign calcification in the left breast. There also are benign calcifications in the righ t breast. Additionally, there are benign post operative findings in both breasts. No significant masses, calcifications, or other findings are seen in either breast. There has been no significant interval change. IMPRESSION: BENIGN There is no mammographic evidence of malignancy. A 1 year screening mammogram is recommended. Based on the Tyrer Cuzick model (a risk assessment model) the patient's lifetime risk is 3.5% and her 10 year risk is 1.3%. According to the ACR, ACS, and NCCN guidelines, an annual breast MRI exam argelia g with mammogram is recommended if the patient's lifetime risk is 20% or greater. This exam was interpreted at Station ID: [id number]. NOTE: For mammograms, a report in lay terms will be sent to the patient. Approximately 15% of breast malignancies will not be visualized mammographically. In the management of a palpable breast mass, a negative mammogram must not discourage biopsy of a clinically suspicious lesion. Electronically Signed By: Ade murillo/radharad:10/14/2023 17:14:24 ACR BI-RADS Category 2: Benign Finding(s) 3342F PARENCHYMAL PATTERN: (F) - The breast(s) demonstrate(s) diffuse fatty replacement. BI-RADS CATEGORY: (2) - 2 RECOMMENDATION: (ANNUAL) - Recommend routine annual screening mammography. [id number] 1 year screening LATERALITY: (B)
== END 2023-10-14 13:55 | disposition home or self-care (01) ==
LOC: DI.S 13:54
PROVIDERS: ATTEND Registered Nurse
DX: Z12.31 Encounter for screening mammogram for malignant neoplasm of breast (principal)

== ENCOUNTER 2023-12-11 10:12 | Outpatient (CLI) | payer MEDICAID ==
--- NOTE | 2023-12-11 11:17 | DEXA Report ---
PROCEDURE: Dexa Spine and/or Hip INDICATIONS: POST MENOPAUSAL TECHNIQUE: Dual energy x-ray absorptiometry (DXA) was performed on a [employer] System. Regions measur ed are the AP Spine, femoral neck, and if needed forearm. COMPARISON: DEXA 02/20/2021. FINDINGS: Lumbar Spine: Bone Mineral Density: 0.837 g/cm/cm, T score: -2.9. There has been no statistically significant cordova ge in bone mineral density since the prior study. Left Femoral Neck: Bone Mineral Density: 0.922 g/cm/cm, T score: -0.8. Left Hip: Bone Mineral Density: 0.923 g/cm/cm, T score: -0.7. There has been no statistically significant sarabia e in bone mineral density since the prior study. (T score greater or equal to -1.0: NORMAL) (T score from -1.1 to -2.4: OSTEOPENIA) (T score less than or equal to -2.5 to: OSTEOPOROSIS) Impression: By WHO criteria, this patient has osteoporosis. No statistical interval change in bone mineral density of the lumbar spine. No statistical interval change in bone mineral density of the hip. Patients with diagnosis of osteoporosis or osteopenia should have regular bone mineral density assess ment. For those eligible for Medicare, routine testing is allowed once every 2 years. Testing frequ ency can be increased for patients who have rapidly progressing disease or for those who are receivin g medical therapy to restore bone mass. Reviewed by: Abel Monique MD on 12/11/2023 11:16 AM PDT Approved by: Abel Monique MD on 12/11/2023 11:16 AM PDT Station ID: [id number]
== END 2023-12-11 10:13 | disposition home or self-care (01) ==
LOC: DI 10:12
PROVIDERS: ATTEND Registered Nurse
DX: M81.0 Age-related osteoporosis without current pathological fracture (principal); Z78.0 Asymptomatic menopausal state

== ENCOUNTER 2024-01-06 07:00 | Outpatient (CLI) | payer MEDICAID ==
[2024-01-06 20:14] LABS: BILIRUBIN,URINE NEGATIVE (NEGATIVE); GLUCOSE, URINE (UA) NEGATIVE (NEGATIVE); KETONES,URINE (UA) NEGATIVE (NEGATIVE); LEUKOCYTE ESTERASE, URINE SMALL (NEGATIVE); NITRITE,URINE NEGATIVE (NEGATIVE); OCCULT BLOOD,URINE LARGE (NEGATIVE); PH,URINE 6.5 PH (5.0-7.5); PROTEIN,URINE 100 mg/dL (NEGATIVE); UROBILINOGEN,URINE 0.2 (NORMAL) E.U./dL (NORMAL)
[2024-01-06 20:20] LABS: CLARITY,URINE CLOUDY (CLEAR)
[2024-01-06 20:28] LABS: BACTERIA,URINE Moderate /HPF (None Seen); RBC,URINE TNTC /HPF (0-5); SQUAMOUS EPITHELIAL CELL,UR RARE Squamous (<= Few); WBC,URINE >25 /HPF (0-5)
== END 2024-01-06 23:59 | disposition home or self-care (01) ==
LOC: LAB.S 07:00
PROVIDERS: ATTEND Emergency Medicine
DX: R39.15 Urgency of urination (principal)
CPT/HCPCS: 81001; 87077; 87086; 87181

== ENCOUNTER 2024-01-19 08:00 | Outpatient (CLI) | payer MEDICAID | END 2024-01-19 23:59 | disposition home or self-care (01) | LOC: LAB.S 08:00 | PROVIDERS: ATTEND Nurse Practitioner | DX: R30.0 Dysuria (principal) | CPT/HCPCS: 87086 ==